=== PATIENT | male | born 1955 | race Caucasian/White ===

== ENCOUNTER 2016-10-25 13:46 | Outpatient (CLI) | payer OTHER ==
[2016-10-26 01:34] LABS: #Basophils 0.1 thou/uL (0.0-0.2); #Eosinphils 0.3 thou/uL (0.0-0.7); #Lymphocytes 2.9 thou/uL (1.20-3.40); #Monocytes 0.7 thou/uL (0.11-0.59); #Neutrophils 2.9 thou/uL (1.40-6.50); %Basophils 1.9 % (0.0-1.0); %Eosinophils 4.7 % (0.0-10.0); %Lymphocytes 41.8 % (21.0-51.0); %Monocytes 9.9 % (0.0-10.0); %Neutrophils 41.6 % (42.0-75.0); Hemoglobin 16.6 g/dL (14.0-18.0); Mean Corpuscular HGB CONC 35.1 g/dL (32.0-36.0); Mean Corpuscular Hemoglobin 33.8 pg (27.0-31.0); Mean Corpuscular Volume 96.3 fl (80.0-94.0); Mean Platelet Volume 7.6 fL (7.4-10.4); Platelet Count 182 thou/uL (130-400); RBC Distribution Width 11.4 % (11.5-14.5); Red Blood Cell (RBC) Count 4.91 mill/uL (4.70-6.10); White Blood Cell (WBC) Count 6.9 thou/uL (4.8-10.8)
[2016-10-26 02:12] LABS: ALT (SGPT) 35 U/L (8-55); AST (SGOT) 33 U/L (5-34); Alkaline Phosphatase 61 U/L (40-150); Anion Gap 15 mmol/L (10-20); BUN (Urea Nitrogen) 11 mg/dL (8.4-25.7); Bilirubin, Total 0.8 mg/dL (0.2-1.2); Calc. Creatinine Clearance 0 mL/min (70-130); Calcium 9.1 mg/dL (7.8-10.44); Carbon Dioxide 23 mmol/L (22-29); Cardiac Risk 3.8 (Less than 4.5); Chloride 106 mmol/L (98-107); Cholesterol 208 mg/dl (< 200 Desired); Estimated GFR-MDRD Greater than 90; Globulin 3.3 g/dL (2.4-3.5); Glucose 90 mg/dL (70-105); HDL Cholesterol 55 mg/dL (>60 Neg Risk); LDL Cholesterol, Calculated 136 mg/dL; Potassium 3.9 mmol/L (3.5-5.1); Protein, Total 7.3 g/dL (6.0-8.3); Sodium 140 mmol/L (136-145); Triglycerides 84 mg/dL (Less than 150)
[2016-10-26 02:27] LABS: Hemoglobin A1c 5.3 % (4.0-6.0)
[2016-10-26 02:32] LABS: PSA-Asymptomatic (SCREENING) 0.24 ng/mL (0-4.0)
[2016-10-26 16:11] LABS: Thyroid Stimulating Hormone 2.9881 uIU/mL (0.35-4.94)
[2016-10-26 19:28] LABS: Hep C IgG Ab Non-Reactive (NonReactive); Hep C Index 0.15 S/CO (0-0.79)
== END 2016-10-25 13:47 | disposition home or self-care (01) ==
LOC: MADLAB 13:46
PROVIDERS: ATTEND Family Medicine
DX: Z12.5 Encounter for screening for malignant neoplasm of prostate (principal); E03.8 Other specified hypothyroidism; E78.2 Mixed hyperlipidemia; R73.01 Impaired fasting glucose; Z11.59 Encounter for screening for other viral diseases
CPT/HCPCS: 36415; 80053; 80061; 83036; 84443; 85025; 86803; G0103

== ENCOUNTER 2017-10-10 18:05 | Outpatient (CLI) | payer OTHER ==
[2017-10-10 19:39] LABS: ALT (SGPT) 24 U/L (8-55); AST (SGOT) 30 U/L (5-34); Albumin 3.9 g/dL (3.5-5.0); Alkaline Phosphatase 57 U/L (40-150); Anion Gap 16 mmol/L (10-20); BUN (Urea Nitrogen) 11 mg/dL (8.4-25.7); Bilirubin, Total 0.8 mg/dL (0.2-1.2); Calc. Creatinine Clearance 0 mL/min (70-130); Calcium 9.1 mg/dL (7.8-10.44); Carbon Dioxide 18 mmol/L (22-29); Cardiac Risk 3.7 (Less than 4.5); Chloride 109 mmol/L (98-107); Cholesterol 196 mg/dl (< 200 Desired); Estimated GFR-MDRD Greater than 90; Globulin 3.1 g/dL (2.4-3.5); Glucose 87 mg/dL (70-105); HDL Cholesterol 53 mg/dL (>60 Neg Risk); LDL Cholesterol, Calculated 127 mg/dL; Potassium 3.9 mmol/L (3.5-5.1); Sodium 139 mmol/L (136-145); Triglycerides 80 mg/dL (Less than 150)
[2017-10-10 20:05] LABS: Thyroid Stimulating Hormone 2.1631 uIU/mL (0.35-4.94)
[2017-10-10 22:47] LABS: #Basophils 0.1 thou/uL (0.0-0.2); #Eosinphils 0.4 thou/uL (0.0-0.7); #Lymphocytes 2.6 thou/uL (1.20-3.40); #Monocytes 0.5 thou/uL (0.11-0.59); #Neutrophils 3.4 thou/uL (1.40-6.50); %Basophils 1.3 % (0.0-1.0); %Eosinophils 5.6 % (0.0-10.0); %Lymphocytes 37.6 % (21.0-51.0); %Monocytes 7.4 % (0.0-10.0); %Neutrophils 48.2 % (42.0-75.0); Hemoglobin 15.4 g/dL (14.0-18.0); Mean Corpuscular HGB CONC 34.4 g/dL (32.0-36.0); Mean Corpuscular Hemoglobin 32.4 pg (27.0-31.0); Mean Corpuscular Volume 94.3 fl (80.0-94.0); Mean Platelet Volume 6.4 fL (7.4-10.4); Platelet Count 186 thou/uL (130-400); RBC Distribution Width 11.1 % (11.5-14.5); Red Blood Cell (RBC) Count 4.77 mill/uL (4.70-6.10)
[2017-10-11 11:54] LABS: Hemoglobin A1c 5.5 % (4.0-6.0)
[2017-10-11 13:10] LABS: PSA-Asymptomatic (SCREENING) 0.27 ng/mL (0-4.0)
== END 2017-10-10 18:06 | disposition home or self-care (01) ==
LOC: MADLAB 18:05
PROVIDERS: ATTEND Family Medicine
DX: Z12.5 Encounter for screening for malignant neoplasm of prostate (principal); E03.8 Other specified hypothyroidism; E78.2 Mixed hyperlipidemia; R73.01 Impaired fasting glucose
CPT/HCPCS: 36415; 80053; 80061; 83036; 84443; 85025; G0103

== ENCOUNTER 2018-04-21 16:04 | Emergency (ER) | payer OTHER ==
[2018-04-22 00:21] LABS: Syphilis Antibody Nonreactive (Nonreactive)
[2018-04-22 00:24] LABS: HIV (1/2) Antibody/Antigen Non-Reactive (NonReactive); HIV 1/2 INDEX 0.14 S/CO (<1.00); Hep A IgM AB Non-Reactive (NonReactive); Hep A IgM S/CO 0.12 S/CO (0-0.79); Hep B Core Total Ab Non-Reactive (NonReactive); Hep B Core Total Index 0.13 S/CO (0-0.79); Hep B Surf Ag Non-Reactive S/CO (NonReactive); Hep C IgG Ab Non-Reactive (NonReactive); Hep C Index 0.18 S/CO (0-0.79)
[2018-04-22 02:24] LABS: HBSAB Concentration 10.58 mIU/mL; Hep B Surf AB Indeterminate (NonReactive)
== END 2018-04-21 17:21 | disposition home or self-care (01) ==
LOC: MADERS 16:04
DX: S61.231A Puncture wound without foreign body of left index finger without damage to nail, initial encounter (principal); E11.9 Type 2 diabetes mellitus without complications; E03.9 Hypothyroidism, unspecified; Z87.891 Personal history of nicotine dependence; Z79.899 Other long term (current) drug therapy; Z79.82 Long term (current) use of aspirin; W46.1XXA Contact with contaminated hypodermic needle, initial encounter
CPT/HCPCS: 86704; 86706; 86709; 86780; 86803; 87340; 87389; 99283

== ENCOUNTER 2019-11-22 14:03 | Outpatient (CLI) | payer SELFPAY ==
[2019-11-22 14:47] LABS: #Basophils 0.1 thou/uL (0.0-0.2); #Eosinphils 0.3 thou/uL (0.0-0.7); #Monocytes 0.7 thou/uL (0.11-0.59); #Neutrophils 3.6 thou/uL (1.40-6.50); %Basophils 2.1 % (0.0-1.0); %Eosinophils 4.1 % (0.0-10.0); %Lymphocytes 29.9 % (21.0-51.0); %Monocytes 10.6 % (0.0-10.0); %Neutrophils 53.3 % (42.0-75.0); Hemoglobin 15.9 g/dL (14.0-18.0); Mean Corpuscular Hemoglobin 31.8 pg (27.0-31.0); Mean Corpuscular Volume 99.1 fL (78.0-98.0); Mean Platelet Volume 7.2 fL (7.4-10.4); Platelet Count 241 thou/uL (130-400); RBC Distribution Width 11.7 % (11.5-14.5); Red Blood Cell (RBC) Count 5.02 mill/uL (4.70-6.10); White Blood Cell (WBC) Count 6.7 thou/uL (4.8-10.8)
[2019-11-22 14:53] LABS: ALT (SGPT) 30 U/L (8-55); AST (SGOT) 29 U/L (5-34); Albumin 4.1 g/dL (3.4-4.8); Alkaline Phosphatase 71 U/L (40-110); Anion Gap 14 mmol/L (10-20); BUN (Urea Nitrogen) 9 mg/dL (8.4-25.7); Bilirubin, Total 0.8 mg/dL (0.2-1.2); Calc. Creatinine Clearance 0 mL/min (70-130); Calcium 8.9 mg/dL (7.8-10.44); Carbon Dioxide 25 mmol/L (23-31); Cardiac Risk 4.3 (Less than 4.5); Chloride 107 mmol/L (98-107); Cholesterol 202 mg/dl (< 200 Desired); Estimated GFR-MDRD 90; Globulin 2.7 g/dL (2.4-3.5); Glucose 94 mg/dL (80-115); HDL Cholesterol 47 mg/dL (>60 Neg Risk); LDL Cholesterol, Calculated 131 mg/dL; Potassium 4.2 mmol/L (3.5-5.1); Protein, Total 6.8 g/dL (5.8-8.1); Sodium 142 mmol/L (136-145); Triglycerides 118 mg/dL (Less than 150)
[2019-11-22 21:39] LABS: Hemoglobin A1c 5.6 % (4.0-6.0)
== END 2019-11-22 14:04 | disposition home or self-care (01) ==
LOC: MADLAB 14:03
PROVIDERS: ATTEND Family Medicine
DX: Z00.00 Encounter for general adult medical examination without abnormal findings (principal)
CPT/HCPCS: 36415; 80050; 80061; 83036

== ENCOUNTER 2020-11-24 13:10 | Outpatient (CLI) | payer OTHER ==
[2020-11-24 14:00] LABS: #Basophils 0.1 thou/uL (0.0-0.2); #Eosinphils 0.3 thou/uL (0.0-0.7); #Lymphocytes 2.3 thou/uL (1.20-3.40); #Monocytes 0.6 thou/uL (0.11-0.59); #Neutrophils 3.1 thou/uL (1.40-6.50); %Basophils 2.3 % (0.0-1.0); %Eosinophils 4.7 % (0.0-10.0); %Lymphocytes 35.5 % (21.0-51.0); %Monocytes 9.5 % (0.0-10.0); %Neutrophils 48.1 % (42.0-75.0); Hemoglobin 15.9 g/dL (14.0-18.0); Mean Corpuscular Hemoglobin 33.5 pg (27.0-31.0); Mean Corpuscular Volume 101.6 fL (78.0-98.0); Mean Platelet Volume 7.4 fL (7.4-10.4); Platelet Count 190 thou/uL (130-400); RBC Distribution Width 11.2 % (11.5-14.5); Red Blood Cell (RBC) Count 4.76 mill/uL (4.70-6.10); White Blood Cell (WBC) Count 6.5 thou/uL (4.8-10.8)
[2020-11-24 14:16] LABS: ALT (SGPT) 24 U/L (8-55); AST (SGOT) 29 U/L (5-34); Alkaline Phosphatase 67 U/L (40-110); Anion Gap 14 mmol/L (10-20); BUN (Urea Nitrogen) 10 mg/dL (8.4-25.7); Bilirubin, Total 0.8 mg/dL (0.2-1.2); Calc. Creatinine Clearance 0 mL/min (70-130); Calcium 9.1 mg/dL (7.8-10.44); Carbon Dioxide 26 mmol/L (23-31); Chloride 106 mmol/L (98-107); Globulin 2.9 g/dL (2.4-3.5); Glucose 110 mg/dL (80-115); Potassium 3.9 mmol/L (3.5-5.1); Protein, Total 6.9 g/dL (5.8-8.1); Sodium 142 mmol/L (136-145)
== END 2020-11-24 13:11 | disposition home or self-care (01) ==
LOC: MADLAB 13:10
DX: Z00.00 Encounter for general adult medical examination without abnormal findings (principal)
CPT/HCPCS: 36415; 80053; 85025

== ENCOUNTER 2022-02-17 06:44 | Outpatient (CLI) | payer OTHER ==
[2022-02-17 06:51] LABS: Cardiac Risk 3.5 (Less than 4.5)
== END 2022-02-17 06:45 | disposition home or self-care (01) ==
LOC: MADLAB 06:44
PROVIDERS: ATTEND Pathology Anatomic Pathology & Clinical Pathology
DX: Z00.00 Encounter for general adult medical examination without abnormal findings (principal)
CPT/HCPCS: 36415; 80061

== ENCOUNTER 2025-02-18 11:59 | Outpatient (CLI) | payer MEDICARE ==
[2025-02-18 12:35] LABS: Glucose, Urine (Dipstick) Negative (Negative); Leukocyte Negative (Negative); Protein, Urine (Dipstick) Negative (Neg-Trace); Specific Gravity, Urine 1.020 (1.005-1.030)
[2025-02-18 12:39] LABS: #Basophils 0.1 thou/uL (0.0-0.2); #Eosinophils 0.3 thou/uL (0.0-0.7); #Lymphocytes 2.1 thou/uL (1.20-3.40); #Monocytes 0.7 thou/uL (0.11-0.59); #Neutrophils 2.9 thou/uL (1.40-6.50); %Basophils 2.1 % (0.0-1.0); %Eosinophils 4.3 % (0.0-10.0); %Lymphocytes 35.0 % (21.0-51.0); %Monocytes 10.9 % (0.0-10.0); %Neutrophils 47.7 % (42.0-75.0); Hematocrit 50.0 % (42.0-52.0); Hemoglobin 16.8 g/dL (14.0-18.0); Mean Corpuscular Hemoglobin 33.5 pg (27.0-31.0); Mean Corpuscular Volume 99.6 fl (78.0-98.0); Platelet Count 218 10x3/uL (130-400); Red Blood Cell (RBC) Count 5.02 mill/uL (4.70-6.10); White Blood Cell (WBC) Count 6.0 10x3/uL (4.8-10.8)
[2025-02-18 12:48] LABS: ALT (SGPT) 56 U/L (Less than 45); AST (SGOT) 56 U/L (11-34); Albumin 4.2 g/dL (3.1-4.5); Alkaline Phosphatase 63 U/L (40-110); Anion Gap 15 mmol/L (10-20); BUN (Urea Nitrogen) 13 mg/dL (8.4-25.7); Bilirubin, Total 0.8 mg/dL (0.3-1.2); Calc. Creatinine Clearance 0 mL/min (70-130); Calcium 9.1 mg/dL (7.8-10.44); Carbon Dioxide 22 mmol/L (23-31); Cardiac Risk 4.0 (Less than 4.5); Chloride 107 mmol/L (98-107); Cholesterol 210 mg/dl (< 200 Desired); Globulin 3.2 g/dL (2.4-3.5); Glucose 98 mg/dL (80-115); HDL Cholesterol 53 mg/dL (>60 Neg Risk); LDL Cholesterol, Calculated 142 mg/dL; Potassium 4.1 mmol/L (3.5-5.1); Sodium 140 mmol/L (136-145); Triglycerides 75 mg/dL (Less than 150)
[2025-02-18 13:07] LABS: Thyroid Stimulating Hormone 1.9477 uIU/mL (0.35-4.94)
[2025-02-18 13:19] LABS: Bacteria/HPF Rare-Few HPF (None Seen); RBC/HPF 0-3 HPF (0-3); WBC/HPF 0-3 HPF (0-3)
[2025-02-18 17:02] LABS: PSA-Asymptomatic (SCREENING) 0.499 ng/mL (0-4.0)
[2025-02-18 17:44] LABS: Free T4 (Free Thyroxine) 0.96 ng/dL (0.70-1.48)
== END 2025-02-18 12:00 | disposition home or self-care (01) ==
LOC: MADLAB 11:59
PROVIDERS: ATTEND Family Medicine
DX: Z00.00 Encounter for general adult medical examination without abnormal findings (principal); Z12.5 Encounter for screening for malignant neoplasm of prostate; R63.8 Other symptoms and signs concerning food and fluid intake
CPT/HCPCS: 36415; 80053; 80061; 81001; 83036; 84439; 84443; 85025; G0103